=== PATIENT | female | born 1985 | race Caucasian/White ===

== ENCOUNTER 2019-03-29 11:38 | Emergency (ER) | payer MEDICAID ==
--- NOTE | 2019-03-29 13:12 | EDM.PDOC ---
ED HPI GENERAL MEDICAL PROBLEM - General Chief Complaint: Respiratory Problem Stated Complaint: [facility] Time Seen by Provider: 03/29/19 12:45 Source of Information: Reports: Patient History Limitations: Reports: No Limitations - History of Present Illness INITIAL COMMENTS - FREE TEXT/NARRATIVE: Mrs. Cook is a pleasant 34-year-old woman with a past history significant for suspected asthma since childhood, who states that she has had a nonproductive cough and a sore throat for about 3 weeks, a headache and lightheadedness for about 2 weeks, a fever for about one week, with a Tmax of 104 as measured by an oral electronic thermometer, and exertional wheezing for the past 3-4 days. She denies having any nasal or sinus congestion or pressure. She states that she was seen at the [facility] on , 03/21/2019, and diagnosed with pneumonia following a chest x-ray. She states that an influenza swab was negative. She was started on a Z-Ernst, which she states she took as directed. She states that her symptoms did not improve, therefore she returned to the [facility] this past 03/27/2019. She states that she was then prescribe doxycycline 100 mg po BID, that she is still on. She states that she then followed up at the [facility] again today and was given IV fluid, IV Solu-Medrol, and an albuterol neb. She states that she was told at the clinic that they now have doubts that her initial diagnosis of pneumonia was correct. The patient's PCP is Dr. Wang Galan. Her Fire Fighter mid-level is SOLIS Barrera. Her Gastroenterology mid-level is Negar Garrett NP. The patient has not received any influenza vaccine this season. 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: Other (See Below) (Uterine leiomyomas) Psychiatric History: Reports: Anxiety, Bipolar, Depression - Past Surgical History HEENT Surgical History: Reports: Oral Surgery (wisdom teeth extractions) Female Surgical History: Reports: Endometrial Ablation, Hysterectomy (pt unsure if partial or complete), Tubal Ligation Social & Family History - Tobacco Use Smoking Status *Q: Never Smoker - Alcohol Use Alcohol Use History: Yes Alcohol Use Frequency: Rarely - Recreational Drug Use Recreational Drug Use: No - Living Situation & Occupation Living situation: Reports: , with Spouse, with Family (1 child) Occupation: Unemployed ED ROS GENERAL - Review of Systems Review Of Systems: ROS reveals no pertinent complaints other than HPI. ED EXAM, GENERAL - Physical Exam Exam: See Below Exam Limited By: No Limitations General Appearance: Alert, WD/WN, No Apparent Distress, Other (Occasional non- productive cough) Eye Exam: Bilateral Eye: EOMI, Normal Inspection Ears: Normal External Exam, Normal Canal, Hearing Grossly Normal, Normal TMs Nose: Normal Inspection, Normal Mucosa, No Blood Throat/Mouth: Normal Inspection, Normal Lips, Normal Teeth, Normal Gums, Normal Oropharynx (Relatively small-sized tonsils without erythema or exudate), Normal Voice, No Airway Compromise Head: Atraumatic, Normocephalic Neck: Normal Inspection, Supple, Non-Tender, Full Range of Motion. No: Lymphadenopathy (L), Lymphadenopathy (R) Respiratory/Chest: No Respiratory Distress, No Accessory Muscle Use, Chest Non- Tender, Crackles (Right base only. Otherwise clear to auscultation bilaterally.) . No: Decreased Breath Sounds, Rhonchi, Wheezing, Stridor, Prolonged Expiration Cardiovascular: Normal Peripheral Pulses, Regular Rate, Rhythm, No Edema, No Gallop, No JVD, No Murmur, No Rub Peripheral Pulses: 4+: Radial (L), Radial (R) GI/Abdominal: Normal Bowel Sounds, Soft, Non-Tender, No Organomegaly, No Distention, No Abnormal Bruit, No Mass (Female) Exam: Deferred Rectal (Female) Exam: Deferred Back Exam: Normal Inspection, Full Range of Motion. No: CVA Tenderness (L), CVA Tenderness (R) Extremities: Normal Inspection, Normal Range of Motion, No Pedal Edema, Normal Capillary Refill Neurological: Alert, Oriented, Normal Cognition, No Motor/Sensory Deficits Psychiatric: Flat Affect Skin Exam: Warm, Dry, Intact, Normal Color, No Rash Course - Vital Signs Last Recorded V/S: Last Vital Signs Temp 36.8 C 03/29/19 11:49 Pulse 80 03/29/19 11:49 Resp 20 03/29/19 11:49 BP 121/81 03/29/19 11:49 Pulse Ox 99 03/29/19 11:49 - Orders/Labs/Meds Orders: Active Orders 24 hr Category Date Time Status Influenza Vaccine Charge [RC] .DISCHARGE Care 03/29/19 16:38 Active Influenza Vaccine Charge [RC] .DISCHARGE Care 03/29/19 16:43 Active CULTURE STREP A CONFIRMATION [] Stat Lab 03/29/19 13:02 Results STREP SCRN A RAPID W CULT CONF [] Stat Lab 03/29/19 13:02 Results Labs: Laboratory Tests 03/29/19 03/29/19 Range/Units 13:24 13:24 WBC 7.43 (3.98-10.04) K/mm3 RBC 5.29 H (3.98-5.22) M/mm3 Hgb 14.4 (11.2-15.7) gm/dl Hct 44.6 (34.1-44.9) % MCV 84.3 (79.4-94.8) fl MCH 27.2 (25.6-32.2) pg MCHC 32.3 (32.2-35.5) g/dl RDW Std Deviation 40.8 (36.4-46.3) fL Plt Count 232 (182-369) K/mm3 MPV 10.5 (9.4-12.3) fl Neutrophils % (Manual) 87 H (40-60) % Band Neutrophils % 0 (0-10) % Lymphocytes % (Manual) 11 L (20-40) % Atypical Lymphs % 0 % Monocytes % (Manual) 1 L (2-10) % Eosinophils % (Manual) 1 (0.7-5.8) % Basophils % (Manual) 0 L (0.1-1.2) Platelet Estimate Adequate RBC Morph Comment Normal Sodium 142 (136-145) mEq/L Potassium 3.9 (3.5-5.1) mEq/L Chloride 109 H (98-107) mEq/L Carbon Dioxide 22 (21-32) mEq/L Anion Gap 14.9 (5-15) BUN 10 (7-18) mg/dL Creatinine 0.9 (0.55-1.02) mg/dL Est Cr Clr Drug Dosing TNP Estimated GFR (MDRD) > 60 (>60) mL/min BUN/Creatinine Ratio 11.1 L (14-18) Glucose 128 H (74-106) mg/dL Calcium 8.8 (8.5-10.1) mg/dL Total Bilirubin 0.4 (0.2-1.0) mg/dL AST 19 (15-37) U/L ALT 32 (14-59) U/L Alkaline Phosphatase 65 (46-116) U/L Total Protein 7.4 (6.4-8.2) g/dl Albumin 3.7 (3.4-5.0) g/dl Globulin 3.7 gm/dL Albumin/Globulin Ratio 1.0 (1-2) Meds: Medications Discontinued Medications Generic Name Dose Route Start Last Admin Trade Name Josi PRN Reason Stop Dose Admin Acetaminophen 650 mg 03/29/19 16:09 03/29/19 16:13 Tylenol PO 03/29/19 16:10 650 mg NOW ONE Administration Famotidine 40 mg 03/29/19 16:33 03/29/19 17:18 Pepcid PO 03/29/19 16:34 40 mg ONETIME STA Administration Influenza Virus Vaccine 1 each 03/29/19 16:38 Pharmacy To Dose - Influenza Vaccine IM 03/29/19 16:39 ONETIME ONE Influenza Virus Vaccine 60 mcg 03/29/19 16:45 03/29/19 17:18 Fluzone Quad [id number] Syringe IM 03/29/19 16:46 60 mcg .ONCE ONE Administration Influenza Virus Vaccine 1 each 03/29/19 16:43 Pharmacy To Dose - Influenza Vaccine IM 03/29/19 16:44 ONETIME ONE - Re-Assessments/Exams Free Text/Narrative Re-Assessment/Exam: 03/29/19 13:06 It is not entirely clear that the patient is suffering from pneumonia. While she states that she was told initially that she had pneumonia, she states that her clinicians have since backed off that diagnosis. I do hear crackles at her right base on auscultation of her lungs, but the remainder of her physical exam is completely benign. Her vitals are normal, she is afebrile, and her oxygen saturation is normal on room air. I have ordered some blood work, a chest x-ray, a rapid strep test, and an influenza swab. The patient's CBC will have to be interpreted bearing in mind that she received Solu-Medrol at the [facility] this morning. 03/29/19 14:00 2-view chest radiograph reviewed. The cardiac silhouette is within normal limits. No pulmonary vascular congestion. No pleural effusions. There may be some streaky opacity in a lower lobe seen on the lateral view only, but no distinct infiltrate is seen. No pneumothorax. Formal read per the Radiologist pending. 03/29/19 14:02 Formal read of the two-view chest x-ray is read by Dr. Flores as: 1. Parenchymal density seen posteriorly within the lung base on the lateral view. Mild area of pneumonia is possible. 2. No other acute abnormality is seen. 03/29/19 16:[address] [facility] was not able to push the x-ray images, however, they were able to fax us the radiology report from 03/21/2019 which reads: FINDINGS: Necklace artifact Relative pulmonary underexpansion without pleural effusion. Streaky opacities extend posteriorly within the right lower lobe. Left lung is clear. The cardiomediastinal silhouette is normal. The thoracic spine curves to the right. IMPRESSION: 2 views chest. Linear atelectasis in the right lower lobe. Lab results faxed over from the [facility] indicate that a CBC, rapid strep test, influenza swab, and Bordetella pertussis test were all negative/ unremarkable on 03/21/2019. The progress note from 03/27/2019 reads "The patient is a 34 year old female who presents with cold symptoms. Symptoms include sneezing, nasal congestion, runny nose, scratchy throat, sore throat, hoarseness, dry cough and headache ( worse with coughing), while symptoms do not include postnasal drainage, productive cough, facial pressure or facial pain. Onset was 3 weeks ago. Associated symptoms include swollen lymph nodes, wheezing, shortness of breath, fatigue, weakness, vomiting (with prolonged coughing more at night), fever and chills, while associated symptoms do not include plugged ear(s), ear pain, nausea or diarrhea. Note for "Cold symptoms: f/u from last week not better" [ sic] If I'm interpreting the paperwork faxed over correctly, it appears that the patient was started on a 5-day course of azithromycin along with Tessalon Perles on 03/21/2019, then prescribed doxycycline 100 mg po BID x 10 days along with albuterol and DuoNeb by nebulizer and promethazine with codeine cough syrup on 03/27/2019. Today's lab results are not much different than her earlier tests, insofar as she does not have an elevated WBC count or significant electrolyte abnormalities , and rapid strep and influenza swabs are negative. Her chest x-ray, by description, appears to be unchanged, consistent with atelectasis, but not really with a focal infiltrate. I do not believe that additional antibiotics are indicated, primarily because it does not appear that the patient actually has pneumonia, but especially since it would appear that the patient is already on doxycycline. The patient confirms that her symptoms are worse at night, which suggests that GERD may play a role. I am therefore recommending that she start taking an antacid. She can take an H2 priti twice a day, or a PPI once a day, but even if she decides to take a PPI, she would need to take an H2 priti for a few days, until the PPI took effect. I will start the patient on Pepcid here, and let the patient decided on her own whether to continue to take an H2 priti or an [id number] PPI. Lastly, the patient agreed to receive an influenza vaccine prior to discharge home. Departure - Departure Time of Disposition: 16:35 Disposition: Home, Self-Care 01 Condition: Good Clinical Impression: Cough - Discharge Information *PRESCRIPTION DRUG MONITORING PROGRAM REVIEWED*: Not Applicable *COPY OF PRESCRIPTION DRUG MONITORING REPORT IN PATIENT STEPHANIE: Not Applicable Instructions: Cough, Adult, [id number] Referrals: Wang Galan MD [Primary Care Provider] - Negar Garrett NP [Ordering Only Provider] - Krissy Koch PA [Ordering Only Provider] - Forms: ED Department Discharge Additional Instructions: You were seen in the emergency room for 3 weeks of a dry cough, occasional fever , lightheadedness and headache, sore throat, and occasional wheezing. Workup in the ER included labwork, a rapid strep test, an influenza swab, and a chest x-ray. Additionally, the notes, prior lab tests, and chest x-ray report from the [facility] were reviewed. Your workup today was completely unremarkable. He do not have an elevated WBC count to suggest a bacterial infection, your electrolytes were within normal limits, you do not have strep throat, you do not have influenza, and your chest x-ray showed only a small opacity in one of your lower lobes (likely your right) , that is likely due to atelectasis, not pneumonia. Based on your history, physical exam, earlier workup and today's workup, we suspect that you are suffering from GERD (acid reflux), where stomach acid may be spilling into your airway when you sleep. You have been started on the antacid medicine famotidine (Pepcid). Famotidine is available [id number], and generic is just as good as brand name. We recommend that you EITHER: Take one tablet of famotidine twice a day, for at least a couple of weeks, to see if that helps your cough OR Start taking a proton pump inhibitor, such as Prilosec OTC, once a day, and to continue to take famotidine 1 tablet twice a day for 3 days, after which you can stop the famotidine. Follow-up with your PCP, Dr. Galan, in about a week. If any other problems, please do not hesitate to return to the ER. *You received an influenza vaccine during your ER visit* - My Orders Last 24 Hours: My Active Orders 03/29/19 13:02 CULTURE STREP A CONFIRMATION [RM] Stat STREP SCRN A RAPID W CULT CONF [RM] Stat 03/29/19 16:38 Influenza Vaccine Charge [RC] .DISCHARGE 03/29/19 16:43 Influenza Vaccine Charge [RC] .DISCHARGE - Assessment/Plan Last 24 Hours: My Active Orders 03/29/19 13:02 CULTURE STREP A CONFIRMATION [RM] Stat STREP SCRN A RAPID W CULT CONF [RM] Stat 03/29/19 16:38 Influenza Vaccine Charge [RC] .DISCHARGE 03/29/19 16:43 Influenza Vaccine Charge [RC] .DISCHARGE
--- NOTE | 2019-03-29 13:59 | CR ---
Chest: Two views of the chest are obtained. Comparison: No prior chest x-ray. Heart size and mediastinum are normal. Slight parenchymal density is seen within posterior lung base on the lateral view. This is most likely on the right side. Lungs otherwise are clear. Bony structures are unremarkable. Impression: 1. Parenchymal density seen posteriorly within the lung base on the lateral view. Mild area of pneumonia is possible. 2. No other acute abnormality is seen. Diagnostic code #3
[2019-03-29] MEDS ORDERED: Acetaminophen 325 MG Tab PO ONE (16:09)
[2019-03-29] MEDS ORDERED: Famotidine 20 MG Tab PO ONE (16:32)
[2019-03-29] MEDS ORDERED: Famotidine 20 MG Tab PO STA (16:33)
[2019-03-29] MEDS ORDERED: FLU Vacc QS2019-20(6MOS+)/PF 60 MCG/0.5 ML SYRINGE IM ONE (16:45)
== END 2019-03-29 17:22 | disposition home or self-care (01) ==
LOC: JD.ED 11:38
DX: R05 Cough (principal); F32.9 Major depressive disorder, single episode, unspecified; F41.9 Anxiety disorder, unspecified; Z88.0 Allergy status to penicillin; Z88.1 Allergy status to other antibiotic agents; Z79.899 Other long term (current) drug therapy; Z23 Encounter for immunization
CPT/HCPCS: 36415; 71046; 80053; 85007; 85027; 87081; 87430; 87804; 90471; 90686; 99284; A9270; G0008

== ENCOUNTER 2021-02-23 16:15 | Emergency (ER) | payer MEDICAID ==
[2021-02-23] MEDS ORDERED: Sodium Chloride 0.9% 10 ML Syringe FLUSH PRN (16:55)
[2021-02-23] MEDS ORDERED: diphenhydrAMINE 50 MG/ML SDV IVPUSH PRN (17:03)
[2021-02-23] MEDS ORDERED: Ketorolac 30 MG/ML SDV IVPUSH ONE (17:03)
[2021-02-23] MEDS ORDERED: Ondansetron 4 MG/2 ML SDV IVPUSH ONE (17:03)
[2021-02-23] MEDS ORDERED: EPINEPHrine 1 MG/ML SDV IM PRN (17:03)
[2021-02-23] MEDS ORDERED: Famotidine 20 MG/2 ML SDV IVPUSH PRN (17:03)
[2021-02-23] MEDS ORDERED: methylPREDNISolone Sodium Succinate 125 MG/2 ML SDV IVPUSH PRN (17:03)
--- NOTE | 2021-02-23 17:12 | EDM.PDOC ---
ED HPI GENERAL MEDICAL PROBLEM - General Chief Complaint: General Stated Complaint: COVID + Time Seen by Provider: 02/23/21 16:36 Source of Information: Reports: Patient, RN Notes Reviewed History Limitations: Reports: No Limitations - History of Present Illness INITIAL COMMENTS - FREE TEXT/NARRATIVE: Patient is a 36-year-old female who presents to the ER for her COVID-19 sympt oms. Patient states she has been feeling generally unwell for some time, and went to the [place] [facility] yesterday, and was tested for COVID-19 and she was found to be positive. She presents to the ER today, due to a headache, body aches, cough, nasal congestion, and some mild amount of blood when she coughs. Notes that she also lost her sense of taste and smell yesterday. She has been taking Tylenol ibuprofen for her headaches and body aches, but nothing seems to really be working well for her at all. Patient's O2 sats on room air are 95%. She is denying any sort of fever, or any sort of vomiting or diarrhea. She states she is also feeling somewhat nauseous. She also has not been eating much, due to decreased appetite. Headache Pain Score (Numeric/FACES): 10 - Related Data Allergies Allergy/AdvReac Type Severity Reaction Status Date / Time Cephalosporins Allergy Other Verified 02/23/21 16:52 Penicillins Allergy Rash Verified 02/23/21 16:52 Home Meds: Home Meds Divalproex Sodium 250 mg PO DAILY 03/29/19 [History] Linaclotide [Linzess] 290 mcg PO DAILY 03/29/19 [History] Mirtazapine 30 mg PO DAILY 03/29/19 [History] Past Medical History - Past Health History Medical/Surgical History: Denies Medical/Surgical History Cardiovascular History: Reports: High Cholesterol (untreated) Respiratory History: Reports: Asthma (suspected, not tested) DIAMOND BLENDER History: Reports: Other (See Below) (Uterine leiomyomas) Psychiatric History: Reports: Anxiety, Bipolar, Depression - Infectious Disease History Infectious Disease History: Reports: Novel Coronavirus (02/22/2021) - Past Surgical History HEENT Surgical History: Reports: Oral Surgery (wisdom teeth extractions) Female Surgical History: Reports: Endometrial Ablation, Hysterectomy (pt unsure if partial or complete), Tubal Ligation Social & Family History - Living Situation & Occupation Living situation: Reports: , with Spouse, with Family (1 child) Occupation: Unemployed ED ROS GENERAL - Review of Systems Review Of Systems: Comprehensive ROS is negative, except as noted in HPI. ED EXAM, GENERAL - Physical Exam Exam: See Below Exam Limited By: No Limitations General Appearance: Alert, WD/WN, No Apparent Distress Eye Exam: Bilateral Eye: Conjunctival Injection Respiratory/Chest: No Respiratory Distress, Lungs Clear, Normal Breath Sounds, No Accessory Muscle Use, Chest Non-Tender Cardiovascular: Normal Peripheral Pulses, Regular Rate, Rhythm, No Edema Peripheral Pulses: 2+: Radial (L), Radial (R) GI/Abdominal: Normal Bowel Sounds, Soft, Non-Tender, No Distention, No Mass Extremities: Normal Inspection, Normal Capillary Refill Neurological: Alert, Oriented, Normal Cognition, No Motor/Sensory Deficits Psychiatric: Normal Affect, Normal Mood Skin Exam: Warm, Dry, Intact, Normal Color, No Rash Course - Vital Signs Last Recorded V/S: Last Vital Signs Temp 97.7 F 02/23/21 16:46 Pulse 97 02/23/21 16:46 Resp 20 02/23/21 16:46 BP 104/84 02/23/21 16:46 Pulse Ox 100 02/23/21 16:46 - Orders/Labs/Meds Orders: Active Orders 24 hr Category Date Time Status Peripheral IV Care [RC] . DIRECTED Care 02/23/21 16:56 Active Vital Signs [RC] Q15M Care 02/23/21 17:03 Active Chest 1V Frontal [CR] Stat Exams 02/23/21 16:55 Taken EPINEPHrine [Adrenalin] Med 02/23/21 17:03 Active 0.3 mg IM ONETIME PRN Famotidine [Pepcid] Med 02/23/21 17:03 Active 20 mg IVPUSH ONETIME PRN Sodium Chloride 0.9% [Saline Flush] Med 02/23/21 16:55 Active 10 ml FLUSH ASDIRECTED PRN Sodium Chloride 0.9% [Saline Flush] Med 02/23/21 17:15 Active 30 ml FLUSH ASDIRECTED diphenhydrAMINE [Benadryl] Med 02/23/21 17:03 Active 50 mg IVPUSH ONETIME PRN methylPREDNISolone Sod Succ [Solu-MEDROL] Med 02/23/21 17:03 Active 125 mg IVPUSH ONETIME PRN Peripheral IV Insertion Adult [OM.PC] Routine Oth 02/23/21 16:55 Ordered Medication Orders Diphenhydramine HCl (Diphenhydramine 50 Mg/Ml Sdv) 50 mg IVPUSH ONETIME PRN PRN Reason: hypersensitivity reaction Epinephrine HCl (Epinephrine 1 Mg/Ml Sdv) 0.3 mg IM ONETIME PRN PRN Reason: hypersensitivity reaction Famotidine (Famotidine 20 Mg/2 Ml Sdv) 20 mg IVPUSH ONETIME PRN PRN Reason: hypersensitivity reaction Methylprednisolone Sodium Succinate (Methylprednisolone Sodium Succinate 125 Mg/2 Ml Sdv) 125 mg IVPUSH ONETIME PRN PRN Reason: hypersensitivity reaction Sodium Chloride (Sodium Chloride 0.9% 10 Ml Syringe) 10 ml FLUSH ASDIRECTED PRN PRN Reason: Keep Vein Open Sodium Chloride (Sodium Chloride 0.9% 10 Ml Syringe) 30 ml FLUSH ASDIRECTED SANDOR Labs: Laboratory Tests 02/23/21 02/23/21 02/23/21 Range/Units 18:03 18:03 18:03 WBC 3.17 L (3.98-10.04) K/mm3 RBC 4.89 (3.98-5.22) M/mm3 Hgb 14.2 (11.2-15.7) gm/dl Hct 43.6 (34.1-44.9) % MCV 89.2 D (79.4-94.8) fl MCH 29.0 (25.6-32.2) pg MCHC 32.6 (32.2-35.5) g/dl RDW Std Deviation 45.0 (36.4-46.3) fL Plt Count 73 L D (182-369) K/mm3 MPV 11.5 (9.4-12.3) fl Neut % (Auto) 64.1 (34.0-71.1) % Lymph % (Auto) 21.1 (19.3-51.7) % Bond % (Auto) 14.5 H (4.7-12.5) % Eos % (Auto) 0 L (0.7-5.8) Baso % (Auto) 0.3 (0.1-1.2) % Neut # (Auto) 2.03 (1.56-6.13) K/mm3 Lymph # (Auto) 0.67 L (1.18-3.74) K/mm3 Bond # (Auto) 0.46 H (0.24-0.36) K/mm3 Eos # (Auto) 0.00 L (0.04-0.36) K/mm3 Baso # (Auto) 0.01 (0.01-0.08) K/mm3 PT 10.7 (9.7-12.0) SECONDS INR 0.96 APTT 29.6 (21.7-31.4) SECONDS Sodium (136-145) mEq/L Potassium (3.5-5.1) mEq/L Chloride (98-107) mEq/L Carbon Dioxide (21-32) mEq/L Anion Gap (5-15) BUN (7-18) mg/dL Creatinine (0.55-1.02) mg/dL Est Cr Clr Drug Dosing Estimated GFR (MDRD) (>60) mL/min BUN/Creatinine Ratio (14-18) Glucose (70-99) mg/dL Calcium (8.5-10.1) mg/dL Magnesium (1.8-2.4) mg/dL Total Bilirubin (0.2-1.0) mg/dL AST (15-37) U/L ALT (14-59) U/L Alkaline Phosphatase (46-116) U/L C-Reactive Protein 2.9 H* (<1.0) mg/dL Total Protein (6.4-8.2) g/dl Albumin (3.4-5.0) g/dl Globulin gm/dL Albumin/Globulin Ratio (1-2) 02/23/21 Range/Units 18:03 WBC (3.98-10.04) K/mm3 RBC (3.98-5.22) M/mm3 Hgb (11.2-15.7) gm/dl Hct (34.1-44.9) % MCV (79.4-94.8) fl MCH (25.6-32.2) pg MCHC (32.2-35.5) g/dl RDW Std Deviation (36.4-46.3) fL Plt Count (182-369) K/mm3 MPV (9.4-12.3) fl Neut % (Auto) (34.0-71.1) % Lymph % (Auto) (19.3-51.7) % Bond % (Auto) (4.7-12.5) % Eos % (Auto) (0.7-5.8) Baso % (Auto) (0.1-1.2) % Neut # (Auto) (1.56-6.13) K/mm3 Lymph # (Auto) (1.18-3.74) K/mm3 Bond # (Auto) (0.24-0.36) K/mm3 Eos # (Auto) (0.04-0.36) K/mm3 Baso # (Auto) (0.01-0.08) K/mm3 PT (9.7-12.0) SECONDS INR APTT (21.7-31.4) SECONDS Sodium 141 (136-145) mEq/L Potassium 3.6 (3.5-5.1) mEq/L Chloride 104 (98-107) mEq/L Carbon Dioxide 28 (21-32) mEq/L Anion Gap 12.6 (5-15) BUN 7 (7-18) mg/dL Creatinine 0.9 (0.55-1.02) mg/dL Est Cr Clr Drug Dosing TNP Estimated GFR (MDRD) > 60 (>60) mL/min BUN/Creatinine Ratio 7.8 L (14-18) Glucose 91 (70-99) mg/dL Calcium 8.0 L (8.5-10.1) mg/dL Magnesium 2.1 (1.8-2.4) mg/dL Total Bilirubin 0.6 (0.2-1.0) mg/dL AST 20 (15-37) U/L ALT 24 (14-59) U/L Alkaline Phosphatase 49 (46-116) U/L C-Reactive Protein (<1.0) mg/dL Total Protein 7.1 (6.4-8.2) g/dl Albumin 3.3 L (3.4-5.0) g/dl Globulin 3.8 gm/dL Albumin/Globulin Ratio 0.9 L (1-2) Meds: Medications Generic Name Dose Route Start Last Admin Trade Name Freq PRN Reason Stop Dose Admin Diphenhydramine HCl 50 mg 02/23/21 17:03 Diphenhydramine 50 Mg/Ml Sdv IVPUSH ONETIME PRN hypersensitivity reaction Epinephrine HCl 0.3 mg 09/14/21 17:03 Epinephrine 1 Mg/Ml Sdv IM ONETIME PRN hypersensitivity reaction Famotidine 20 mg 02/23/21 17:03 Famotidine 20 Mg/2 Ml Sdv IVPUSH ONETIME PRN hypersensitivity reaction Methylprednisolone Sodium Succinate 125 mg 02/23/21 17:03 Methylprednisolone Sodium Succinate 125 Mg/2 Ml Sdv IVPUSH ONETIME PRN hypersensitivity reaction Sodium Chloride 10 ml 02/23/21 16:55 Sodium Chloride 0.9% 10 Ml Syringe FLUSH ASDIRECTED PRN Keep Vein Open Sodium Chloride 30 ml 02/23/21 17:15 Sodium Chloride 0.9% 10 Ml Syringe FLUSH ASDIRECTED SANDOR Discontinued Medications Generic Name Dose Route Start Last Admin Trade Name Freq PRN Reason Stop Dose Admin CASIRIVIMAB/IMDEVIMAB 10 ml/ 110 mls @ 220 mls/hr 02/23/21 17:03 02/23/21 18:09 Sodium Chloride IV 02/23/21 17:32 220 mls/hr ONETIME ONE Administration Ketorolac Tromethamine 30 mg 02/23/21 17:03 Ketorolac 30 Mg/Ml Sdv IVPUSH 02/23/21 17:04 ONETIME ONE Ondansetron HCl 4 mg 02/23/21 17:03 Ondansetron 4 Mg/2 Ml Sdv IVPUSH 02/23/21 17:04 ONETIME ONE - Re-Assessments/Exams Free Text/Narrative Re-Assessment/Exam: 02/23/21 17:11 Patient presents to the ER today for her ongoing COVID-19 symptoms, will go ahead and get a chest x-ray, basic labs for further evaluation. Patient does qualify for Regeneron, and this has been ordered. I spoke with the patient to provide information about Regeneron treatment. I offered them the "Patient and caregiver EUA Regeneron fact sheet" to read and review. I stated that the drug has been approved by an emergency use authorization (EUA) process and has not been fully FDA reviewed or approved. T he patient meets the EUA requirements. I discussed there are other potential treatment options that are currently not FDA approved to treat COVID-19. I did offer an opportunity to ask questions and all questions were answered. The patient voiced understanding and agreed to proceed with the treatment. 02/23/21 19:25 Laboratory evaluation demonstrates no acute abnormalities that would need emerg ent management. CRP is mildly elevated at 2.5. Patient is observation for Regeneron is done in about 15 minutes we will go ahead and get her discharge at that time. Departure - Departure Time of Disposition: 19:26 Disposition: Home, Self-Care 01 Condition: Fair Clinical Impression: COVID-19 - Discharge Information *PRESCRIPTION DRUG MONITORING PROGRAM REVIEWED*: No *COPY OF PRESCRIPTION DRUG MONITORING REPORT IN PATIENT STEPHANIE: No Instructions: 10 Things You Can Do to Manage Your COVID-19 Symptoms at Home - [facility] [place]12/11/[place] Referrals: PCP,Not In Area [Primary Care Provider] - Forms: ED Department Discharge Additional Instructions: You were seen in the ER today for ongoing and/or worsening respiratory symptoms. Your chest x-ray showed no signs of pneumonia at this time. Your oxygen levels were great at 96-98% on room air. You were given IV Regeneron therapy at today's visit, this medication is thought to work by making you a little less sick, and helps to decrease the length of time that you are sick. Please try to increase your oral fluid intake, and eat multiple small meals throughout the day, to keep yourself healthy. You need to keep yourself nourished in order to fight off this disease. You can try a liquid diet like gatorade/powerade as well to get your electrolytes. You may take 500 mg Tylenol every hours 6 hours for pain/fever relief. Do not exceed 4000 mg Tylenol in a 24-hour time span. However, running a fever is your body's natural response to illness, and it allows the body to develop antibodies to disease, we are recommending trying to limit the use of Tylenol as much as possible to allow your body's natural immune response. Recommend you obtain a pulse oximeter and monitor your oxygen levels at home, you should place the monitor on your finger, and sit in a calm, quiet position for a few minutes and then record the number that is on the screen. If this consistently below 90% on room air without movement, this would be cause for concern to come back to the hospital for further management of your COVID-19 disease. Please follow all guidance set forth from [facility], regarding isolation purposes for your disease process. General isolation times are 10 days from when you started being symptomatic. Sepsis Event Note (ED) - Evaluation Sepsis Screening Result: No Definite Risk - Focused Exam Vital Signs: Vital Signs Temp Pulse Resp BP Pulse Ox 02/23/21 16:46 97.7 F 97 20 104/84 100 - My Orders Last 24 Hours: My Active Orders 02/23/21 16:55 Chest 1V Frontal [CR] Stat Sodium Chloride 0.9% [Saline Flush] 10 ml FLUSH ASDIRECTED PRN Peripheral IV Insertion Adult [OM.PC] Routine 02/23/21 16:56 Peripheral IV Care [RC] . DIRECTED 02/23/21 17:03 Vital Signs [RC] Q15M EPINEPHrine [Adrenalin] 0.3 mg IM ONETIME PRN Famotidine [Pepcid] 20 mg IVPUSH ONETIME PRN diphenhydrAMINE [Benadryl] 50 mg IVPUSH ONETIME PRN methylPREDNISolone Sod Succ [Solu-MEDROL] 125 mg IVPUSH ONETIME PRN 02/23/21 17:15 Sodium Chloride 0.9% [Saline Flush] 30 ml FLUSH ASDIRECTED - Assessment/Plan Last 24 Hours: My Active Orders 02/23/21 16:55 Chest 1V Frontal [CR] Stat Sodium Chloride 0.9% [Saline Flush] 10 ml FLUSH ASDIRECTED PRN Peripheral IV Insertion Adult [OM.PC] Routine 02/23/21 16:56 Peripheral IV Care [RC] . DIRECTED 02/23/21 17:03 Vital Signs [RC] Q15M EPINEPHrine [Adrenalin] 0.3 mg IM ONETIME PRN Famotidine [Pepcid] 20 mg IVPUSH ONETIME PRN diphenhydrAMINE [Benadryl] 50 mg IVPUSH ONETIME PRN methylPREDNISolone Sod Succ [Solu-MEDROL] 125 mg IVPUSH ONETIME PRN 02/23/21 17:15 Sodium Chloride 0.9% [Saline Flush] 30 ml FLUSH ASDIRECTED
[2021-02-23] MEDS ORDERED: Sodium Chloride 0.9% 10 ML Syringe FLUSH SCH (17:15)
[2021-02-23] MEDS ORDERED: Ketorolac 30 MG/ML SDV ONE (19:37)
--- NOTE | 2021-02-24 07:08 | CR ---
Chest: Frontal view of the chest was obtained. Comparison: No prior chest imaging is available. Patchy increased area of consolidation is noted within the right mid and lower lung. Left lung is clear. Heart size and mediastinum are normal. No acute osseous abnormality is appreciated. Impression: 1. Increased consolidation within the right mid and lower lung. Findings most likely represent pneumonia. Please rule out COVID disease. Diagnostic code #3
== END 2021-02-23 20:00 | disposition home or self-care (01) ==
LOC: JD.ED 16:15
DX: U07.1 COVID-19 (principal); Z88.0 Allergy status to penicillin; Z88.1 Allergy status to other antibiotic agents; Z79.899 Other long term (current) drug therapy
CPT/HCPCS: 36415; 71045; 80053; 83735; 85025; 85610; 85730; 86140; 96374; 99284; J1885; M0243; Q0243